=== PATIENT | female | born 1955 | race Caucasian/White ===

== ENCOUNTER → 2016-11-27 | Outpatient (CLI) | payer BC | LOC: BMCIMAGING 13:01 | PROVIDERS: ATTEND Emergency Medicine | DX: S52.572A Other intraarticular fracture of lower end of left radius, initial encounter for closed fracture (principal) ==

== ENCOUNTER → 2017-01-02 | Outpatient (CLI) | payer BC | LOC: BMCIMAGING 09:40 | PROVIDERS: ATTEND Physician Assistant | DX: S52.502A Unspecified fracture of the lower end of left radius, initial encounter for closed fracture (principal); X58.XXXA Exposure to other specified factors, initial encounter ==

== ENCOUNTER 2017-06-21 11:39 | Emergency (ER) | payer BC ==
[2017-06-21 11:43] VITALS: TEMP 98.2
--- NOTE | 2017-06-21 11:49 | CPEKG ---
Heart Rate: 82 RR Interval: 732 P-R Interval: 172 QRSD Interval: 76 QT Interval: 420 QTC Interval: 491 P [place]: 56 QRS [place]: -42 T Wave [place]: -25 EKG Severity - BORDERLINE ECG - EKG Impression: SINUS RHYTHM EKG Impression: LEFT AXIS DEVIATION EKG Impression: BORDERLINE T ABNORMALITIES, INFERIOR LEADS EKG Impression: BORDERLINE PROLONGED QT INTERVAL Electronically Signed By: Mykel Hubbard 22-Jun-2017 20:29:39
[2017-06-21] MEDS ORDERED: NS 1,000 ML IV ONE (11:58)
[2017-06-21 12:25] LABS: PLATELET COUNT 228 10^3/uL (150-400)
--- NOTE | 2017-06-21 13:07 | EDPHY ---
H & P Time Seen by Provider: 06/21/17 12:24 HPI/ROS: CHIEF COMPLAINT: Vomiting, diarrhea, cold symptoms HISTORY OF PRESENT ILLNESS: 61-year-old female presents to the emergency department with multiple episodes of vomiting and diarrhea as well as ongoing cough for last 7 days. The patient states that she initially had symptoms of fever, cough, myalgias and vomiting diarrhea. Her symptoms improved and then she developed recurring vomiting and diarrhea over the weekend. Her grandchildren and daughter were also ill with similar symptoms. She did receive a flu shot. She denies chest pain or difficulty breathing. Denies any abdominal pain currently. She was concerned because she felt very dehydrated. No urinary symptoms. No back pain. REVIEW OF SYSTEMS: Constitutional: As above. Eyes: No double or blurry vision. ENT: No sore throat. Respiratory: cough, no shortness of breath. Cardiac: No chest pain. Gastrointestinal: Vomiting, diarrhea. No abdominal pain. Genitourinary: No dysuria. Musculoskeletal: No neck or back pain. Skin: No rashes. Neurological: No headache. Past Medical/Surgical History: Crohn's disease Social History: Smoking Status: Never smoked Physical Exam: General Appearance: Alert, no distress. Nontoxic appearing. Afebrile. 97% on room air. Eyes: Pupils equal and round. Extraocular motions are all intact. ENT: Mouth: Mucous membranes moist. Respiratory: No wheezing, rhonchi, or rales, lungs are clear to auscultation. Cardiovascular: Regular rate and rhythm. Gastrointestinal: Abdomen is soft and nontender, no masses, no rebound or guarding, bowel sounds normal. Neurological: Alert and oriented x 3, cranial nerves II through XII grossly intact Skin: Warm and dry, no rashes. Musculoskeletal: Nontender to palpate along the cervical, thoracic or lumbar spine. Neck is supple. Extremities: Full range of motion and no peripheral edema. Psychiatric: Patient is oriented X 3, there is no agitation. Constitutional: Initial Vital Signs Temperature (C) 36.8 C 06/21/17 11:41 Heart Rate 90 06/21/17 11:41 Respiratory Rate 19 06/21/17 11:41 Blood Pressure 194/87 H 06/21/17 11:41 O2 Sat (%) 97 06/21/17 11:41 O2 Delivery Mode Room Air Allergies/Adverse Reactions: ether Allergy (Verified 06/21/17 11:40) Home Medications: Medication Instructions Recorded Glucophage 1000 mg 06/21/17 Medical Decision Making - Diagnostics Imaging Results: Imaging Impressions Chest X-Ray 06/21/17 11:58 Impression: Mild bronchitis. No other findings for acute cardiopulmonary abnormality. ED Course/Re-evaluation: Patient had IV established. Was given IV normal saline. The patient upon discharge was feeling much better. She was no longer feeling nauseous. She was tolerating p.o. fluids. She is comfortable being discharged home. I did discuss with the patient the possibility of influenza, however she has been sick for over 1 week and I do not think testing for influenza or treat with Tamiflu is indicated. Patient verbalized understanding and agreed. Differential Diagnosis: Including but not limited to viral upper respiratory infection, influenza, bronchitis, pneumonia, gastroenteritis, dehydration - Data Points Laboratory Results: Laboratory Results 06/21/17 11:55 06/21/17 11:55 06/21/17 06/21/17 11:55 11:55 WBC 7.97 10^3/uL 10^3/uL (3.80-9.50) RBC 5.15 10^6/uL 10^6/uL (4.18-5.33) Hgb 15.0 g/dL g/dL (12.6-16.3) Hct 41.1 % % (38.0-47.0) MCV 79.8 fL L fL (81.5-99.8) MCH 29.1 pg pg (27.9-34.1) MCHC 36.5 g/dL g/dL (32.4-36.7) RDW 12.0 % % (11.5-15.2) Plt Count 228 10^3/uL 10^3/uL (150-400) MPV 9.7 fL fL (8.7-11.7) Neut % (Auto) 65.8 % % (39.3-74.2) Lymph % (Auto) 27.0 % % (15.0-45.0) [place] % (Auto) 5.0 % % (4.5-13.0) Eos % (Auto) 1.0 % % (0.6-7.6) Baso % (Auto) 0.4 % % (0.3-1.7) Nucleat RBC Rel Count 0.0 % % (0.0-0.2) Absolute Neuts (auto) 5.25 10^3/uL 10^3/uL (1.70-6.50) Absolute Lymphs (auto) 2.15 10^3/uL 10^3/uL (1.00-3.00) Absolute Monos (auto) 0.40 10^3/uL 10^3/uL (0.30-0.80) Absolute Eos (auto) 0.08 10^3/uL 10^3/uL (0.03-0.40) Absolute Basos (auto) 0.03 10^3/uL 10^3/uL (0.02-0.10) Absolute Nucleated RBC 0.00 10^3/uL 10^3/uL (0-0.01) Immature Gran % 0.8 % % (0.0-1.1) Immature Gran # 0.06 10^3/uL 10^3/uL (0.00-0.10) Sodium 141 mEq/L mEq/L (134-144) Potassium 3.3 mEq/L L mEq/L (3.5-5.2) Chloride 107 mEq/L mEq/L (97-110) Carbon Dioxide 18 mEq/l L mEq/l (22-31) Anion Gap 16 mEq/L mEq/L (8-16) BUN 8 mg/dL mg/dL (7-23) Creatinine 0.6 mg/dL mg/dL (0.6-1.0) Estimated GFR > 60 Glucose 163 mg/dL H mg/dL (70-100) Calcium 10.1 mg/dL mg/dL (8.5-10.4) Troponin I < 0.012 ng/mL ng/mL (0.000-0.034) Medications Given: Discontinued Medications Sodium Chloride (Ns) 1,000 mls @ 0 mls/hr IV ONCE ONE PRN Reason: Wide Open Stop: 06/21/17 11:59 Last Admin: 06/21/17 12:04 Dose: 1,000 mls Ondansetron HCl (Zofran Odt 4 Mg Prepack#2) 1 btl TAKEHOME EDNOW ONE Stop: 06/21/17 13:41 Last Admin: 06/21/17 13:49 Dose: 1 btl Departure - Departure Disposition: Home, Routine, Self-Care Clinical Impression: Dehydration, Gastroenteritis Upper respiratory infection Qualifiers: URI type: unspecified URI Qualified Code(s): J06.9 - Acute upper respiratory infection, unspecified Condition: Good Instructions: Dehydration (ED), Upper Respiratory Infection (ED), Gastroenteritis (ED) Additional Instructions: Diet and activity as tolerated. With your primary care provider regarding elevated blood pressure Adult Pain & Fever Control: We recommend Acetaminophen (Tylenol) and Ibuprofen (Motrin,Advil) for pain and fever control. When fever is high or pain severe, both drugs can be used at the same time, but at different intervals. Please note the time differences. Your dose is: Acetaminophen 1000mg every 4 to 6 hours Ibuprofen 600mg every 8 hours with food Note: do not take Acetaminophen with Hydrocodone (Vicodin, Lortab) or Oycodone (Percocet). These medications also contain Acetaminophen. No more than 3000mg of Acetaminophen should be taken in 24 hours (for an adult). Referrals: Vivian White MD [Primary Care Provider] - 2-3 days, if not improved
[2017-06-21] MEDS ORDERED: ONDANSETRON 4MG PREPACK#2 BTL TAKEHOME ONE (13:40)
[2017-06-21 13:46] VITALS: BP 177/83; PULSE 72; RESP 15; O2SAT 96
== END 2017-06-21 13:56 | disposition home or self-care (01) ==
PROC: 3E0337Z Introduction of Electrolytic and Water Balance Substance into Peripheral Vein, Percutaneous Approach (ICD-10-PCS; principal; 2017-06-21)
DX: K52.9 Noninfective gastroenteritis and colitis, unspecified (principal); J06.9 Acute upper respiratory infection, unspecified; E86.0 Dehydration

== ENCOUNTER → 2017-06-26 | Outpatient (CLI) | payer BC | LOC: BMCIMAGING 13:42 | PROVIDERS: ATTEND Internal Medicine | DX: Z12.31 Encounter for screening mammogram for malignant neoplasm of breast (principal); Z80.3 Family history of malignant neoplasm of breast ==